=== PATIENT | male | born 1955 | race Two or more races ===

== ENCOUNTER 2022-10-28 15:47 | Emergency (ER) | payer OTHER ==
[~2022-10-28] VITALS: Ht 172.7 cm; Wt 80.3 kg
[2022-10-28] MEDS ORDERED: LANTUS SOL100 UNIT/1 SQ (16:55)
[2022-10-28] MEDS ORDERED: GLIPIZIDE10 MG PO (16:55)
[2022-10-28] MEDS ORDERED: DOXYCYCLINE HY100 M2 PO (22:22)
== END 2022-10-28 22:41 | disposition home or self-care (01) ==
LOC: ER 15:47
DX: L97.919 Non-pressure chronic ulcer of unspecified part of right lower leg with unspecified severity (principal); E11.9 Type 2 diabetes mellitus without complications; Z79.4 Long term (current) use of insulin; Z88.2 Allergy status to sulfonamides